=== PATIENT | male | born 1945 | race Two or more races ===

== ENCOUNTER 2017-04-01 00:08 | Emergency (ER) | payer MEDICARE, OTHER ==
[~2017-04-01] VITALS: Ht 167.6 cm; Wt 97.5 kg
[2017-04-01] MEDS ORDERED: HYDR25TA4 PO (00:36)
[2017-04-01] MEDS ORDERED: AMLO5TAB4 PO (00:38)
--- NOTE | 2017-04-01 00:38 | NUR ---
Pt is received alert, responsive as he came in c/o chest pain 10/06 , describing pain as pressure but none Radiating that started 1hr ago after flying from [place]. His care continue as awaits labs results while monitor closely.
[2017-04-01 00:59] LABS: BASOPHILS # (AUTO) 0.1 K/uL (0.0-8.0); BASOPHILS % (AUTO) 0.8 % (0.0-2.0); EOSINOPHILS # (AUTO) 0.4 K/uL (0.0-0.7); EOSINOPHILS % (AUTO) 6.2 % (0.0-7.0); HEMATOCRIT 43.5 % (40-50); HEMOGLOBIN 14.1 G/DL (14.0-18.0); LYMPHOCYTES # (AUTO) 2.2 K/UL (0.8-4.8); LYMPHOCYTES % (AUTO) 34.7 % (20.5-51.5); MEAN CORPUSCULAR HEMOGLOBIN 25.2 UUG (27.0-31.0); MEAN CORPUSCULAR HGB CONC 32 g/dL (32.0-37.0); MEAN CORPUSCULAR VOLUME 77.9 FL (82.0-92.0); MONOCYTES # (AUTO) 0.7 K/UL (0.1-1.30); MONOCYTES % (AUTO) 10.3 % (0.0-11.0); NEUTROPHILS # (AUTO) 2.9 K/UL (1.8-8.9); PLATELET COUNT (AUTO) 188 K/UL (150-450); RED BLOOD CELL COUNT(AUTO) 5.59 MIL/UL (4.7-6.1); WHITE BLOOD COUNT (AUTO) 6.3 K/UL (4.0-11.2)
[2017-04-01 01:00] LABS: CREATININE 1.3 mg/dL (0.6-1.3); POTASSIUM 3.3 mmol/L (3.5-5.1)
[2017-04-01 01:17] LABS: BILIRUBIN,DIRECT 0.1 mg/dL (0.0-0.2); BILIRUBIN,TOTAL 0.2 mg/dL (0.2-1.0); TOTAL PROTEIN, SERUM 6.7 g/dL (6.4-8.2)
--- NOTE | 2017-04-01 01:46 | NUR ---
Pt is noted resting in bed with no new c/o off chest pain or s/s off distress as he received 20MEQ off Potassium level 0ff 3.3. His care continue as he is due for CT as ordered.
--- NOTE | 2017-04-01 02:07 | NUR ---
Pt is noted off the unit to home after signing AMA, He stated that , he can not wait any longer for test results, he just want to go home and get some sleep. All risk and consequences involved in laeving the hospital is been explained and he is stable.
[2017-04-01 02:15] VITALS: BP 128/70
== END 2017-04-01 02:10 | disposition left against medical advice (07) ==
LOC: ER 00:13
DX: R07.89 Other chest pain (principal); I10 Essential (primary) hypertension; E87.6 Hypokalemia; R39.2 Extrarenal uremia
CPT/HCPCS: 36415; 70030-TC; 71010; 83690; 85025; 93005; A4663